=== PATIENT | female | born 1960 | race Caucasian/White ===

== ENCOUNTER 2017-05-22 15:11 | Inpatient (IN) | payer BC ==
[~2017-05-22] VITALS: Ht 167.6 cm; Wt 52.0 kg
[~2017-05-22 15:11] MED LIST: Advair HFA 115/21 IH; BUTALB-APAP-CA1 EACH PO; DELTASONE10 MG PO; DESYREL 150 MG150 MG PO; DIOVAN80 MG PO; Elavil PO; FENTANYL1 EAC5 TD; Flexeril PO; GABAPENTIN100 MG PO; GARAMYCIN3.5 G1 LEFT EYE; HABITROL,NICODE21 MG TD; HYDROCODON-ACE1 EAC7 PO; INSULIN PUMP MC; LANTUS 10100 UNITS/ SC; LANTUS 3 M100 UNITS/ SC; METFORMIN HCL1000 M3 PO; OXYCODONE HCL10 MG PO; OXYCODONE HCL5 MG PO; PERCOCET 5/31 TABLET PO; PROMETHAZINE HC25 M1 PO; PROTONIX40 MG PO; TYLENOL WITH C1 EACH PO; WELLBUTRIN SR150 MG PO; WYGESIC,DARV1 TABLET PO
[2017-05-22 21:58] LABS: CHLORIDE 104 mEq/L (99-109); SODIUM 137 mEq/L (136-147)
[2017-05-22 21:59] LABS: GLUCOSE 167 mg/dL (70-99)
[2017-05-22 22:03] LABS: CREATININE 0.9 mg/dL (0.6-1.3); GFR ESTIMATE (CALCULATED) > 59 mL/min/
[2017-05-22 22:04] LABS: UREA NITROGEN (BUN) 18 mg/dL (9-23)
[2017-05-22 22:17] VITALS: BP 159/79
[2017-05-23 03:48] VITALS: BP 134/79
[2017-05-23 16:30] VITALS: BP 147/72
[2017-05-23 19:21] VITALS: BP 140/69
[2017-05-23 23:25] VITALS: BP 111/59
[2017-05-24 05:07] VITALS: BP 131/72
[2017-05-24 08:21] VITALS: BP 119/61
[2017-05-24] MEDS ORDERED: HYDROCODON-ACE1 EAC7 PO (11:19)
[2017-05-24] MEDS ORDERED: CYCLOBENZAPRINE10 MG PO (11:19)
== END 2017-05-24 13:26 | disposition home or self-care (01) | DRG 473 ==
LOC: EME 15:11 → EDOF 17:27 → 3EAST 17:27 → ENRESERV 18:02 → 3EAST 22:06
PROVIDERS: Neurological Surgery
DX: M47.12 Other spondylosis with myelopathy, cervical region (principal); M50.121 Cervical disc disorder at C4-C5 level with radiculopathy; M50.122 Cervical disc disorder at C5-C6 level with radiculopathy; M50.123 Cervical disc disorder at C6-C7 level with radiculopathy; M25.78 Osteophyte, vertebrae; I10 Essential (primary) hypertension; J45.909 Unspecified asthma, uncomplicated; G43.909 Migraine, unspecified, not intractable, without status migrainosus; M79.7 Fibromyalgia; E11.9 Type 2 diabetes mellitus without complications; F32.9 Major depressive disorder, single episode, unspecified; K21.9 Gastro-esophageal reflux disease without esophagitis; Z96.41 Presence of insulin pump (external) (internal); F17.210 Nicotine dependence, cigarettes, uncomplicated; Z79.4 Long term (current) use of insulin; Z88.2 Allergy status to sulfonamides; Z88.1 Allergy status to other antibiotic agents
CPT/HCPCS: 80048; 82948; 99281; 99285; C1713; C1821; J0131; J0690; J1100; J1170; J2250; J2270; J2405; J3010; J3480